=== PATIENT | male | born 1965 | race Caucasian/White ===

== ENCOUNTER 2022-09-28 18:11 | Inpatient (IN) | payer OTHER ==
[2022-09-28] MEDS ORDERED: Sodium Chloride 0.9% 10 ML Syringe FLUSH PRN (20:08)
[2022-09-28] MEDS ORDERED: Multivitamins with Iron/Calcium/Folic Acid/Minerals Tab PO SCH (21:00)
[2022-09-28 21:06] LABS: CORONAVIRUS COVID-19 NAA NEGATIVE (NEGATIVE)
[2022-09-28] MEDS: Lactated Ringers 1,000 ML IV SCH (21:30)
[2022-09-28] MEDS: Tamsulosin 0.4 MG Cap.ER PO SCH (21:30)
[2022-09-29] MEDS: Cholecalciferol (Vitamin D3) 25 MCG Tab PO SCH (08:56)
[2022-09-29] MEDS: Vitamin B Complex Tab PO SCH (08:57)
[2022-09-29] MEDS: predniSONE 20 MG Tab PO SCH (08:57)
[2022-09-29] MEDS: Allopurinol 100 MG Tab PO SCH (08:57)
[2022-09-29] MEDS: Cyanocobalamin (Vitamin B12) 1,000 MCG Tab PO SCH (08:57)
[2022-09-29] MEDS: Multivitamins with Iron Tab.Chew PO SCH ×2 (08:57→20:49)
[2022-09-29] MEDS ORDERED: predniSONE 5 MG Tab PO SCH (09:00)
[2022-09-29] MEDS ORDERED: Potassium Chloride 20 MEQ Tab.ER PO ONE (09:00)
[2022-09-29] MEDS: Acetaminophen 325 MG Tab PO PRN (09:53)
[2022-09-29] MEDS: Sulfamethoxazole/Trimethoprim 800-160 MG Tab PO SCH ×2 (10:42→20:50)
[2022-09-29] MEDS: Lactated Ringers 1,000 ML IV SCH (11:59)
[2022-09-29] MEDS: Tamsulosin 0.4 MG Cap.ER PO SCH (20:49)
[2022-09-29] MEDS: Hypromellose 0.3% Ophth Soln 15 ML Bottle EYEBOTH PRN (21:03)
[2022-09-29] MEDS: Latanoprost 0.005% Ophth Soln 2.5 ML Bottle EYEBOTH SCH (21:03)
[2022-09-30] MEDS: Lactated Ringers 1,000 ML IV SCH (05:42)
[2022-09-30 06:08] LABS: ESTIMATED GFR 88 mL/min (>60)
[2022-09-30] MEDS: predniSONE 20 MG Tab PO SCH (07:25)
[2022-09-30] MEDS: Multivitamins with Iron Tab.Chew PO SCH ×2 (08:29→20:58)
[2022-09-30] MEDS: Cholecalciferol (Vitamin D3) 25 MCG Tab PO SCH (08:30)
[2022-09-30] MEDS: Vitamin B Complex Tab PO SCH (08:30)
[2022-09-30] MEDS: Cyanocobalamin (Vitamin B12) 1,000 MCG Tab PO SCH (08:30)
[2022-09-30] MEDS: Sulfamethoxazole/Trimethoprim 800-160 MG Tab PO SCH ×2 (08:30→20:59)
[2022-09-30] MEDS: Allopurinol 100 MG Tab PO SCH (08:31)
[2022-09-30] MEDS: Hypromellose 0.3% Ophth Soln 15 ML Bottle EYEBOTH PRN (20:59)
[2022-09-30] MEDS: Latanoprost 0.005% Ophth Soln 2.5 ML Bottle EYEBOTH SCH (20:59)
[2022-09-30] MEDS: Tamsulosin 0.4 MG Cap.ER PO SCH (20:59)
[2022-09-30] MEDS: Acetaminophen 325 MG Tab PO PRN (23:43)
[2022-10-01 05:03] LABS: ESTIMATED GFR 88 mL/min (>60)
[2022-10-01] MEDS: Lactated Ringers 1,000 ML IV SCH (05:44)
[2022-10-01] MEDS ORDERED: fentaNYL 250 MCG/5 ML SDV ONE ×2 (07:14→13:31)
[2022-10-01] MEDS ORDERED: Glycopyrrolate 0.2 MG/ML 5 ML MDV ONE (07:15)
[2022-10-01] MEDS ORDERED: Ondansetron 4 MG/2 ML SDV ONE (07:15)
[2022-10-01] MEDS ORDERED: Propofol 200 MG/20 ML SDV ONE (07:15)
[2022-10-01] MEDS ORDERED: Dexamethasone 4 MG/ML SDV ONE (07:15)
[2022-10-01] MEDS ORDERED: Succinylcholine 200 MG/10 ML MDV ONE (07:15)
[2022-10-01] MEDS ORDERED: Rocuronium 50 MG/5 ML Vial ONE (07:15)
[2022-10-01] MEDS ORDERED: Neostigmine Methylsulfate 1 MG/ML 5 ML Syringe ONE (07:15)
[2022-10-01] MEDS ORDERED: Meropenem 500 MG SDV ONE (08:01)
[2022-10-01] MEDS ORDERED: Lidocaine 1% with EPINEPHrine 1:100,000 50 ML MDV ONE (08:01)
[2022-10-01] MEDS ORDERED: Bupivacaine 0.5% 50 ML MDV ONE (08:01)
[2022-10-01] MEDS ORDERED: Indocyanine Green 25 MG SDV IV ONE (08:30)
[2022-10-01] MEDS: Cyanocobalamin (Vitamin B12) 1,000 MCG Tab PO SCH (08:57)
[2022-10-01] MEDS: Cholecalciferol (Vitamin D3) 25 MCG Tab PO SCH (08:57)
[2022-10-01] MEDS: Sulfamethoxazole/Trimethoprim 800-160 MG Tab PO SCH (08:57)
[2022-10-01] MEDS: Multivitamins with Iron Tab.Chew PO SCH (08:57)
[2022-10-01] MEDS: Vitamin B Complex Tab PO SCH (08:57)
[2022-10-01] MEDS: Allopurinol 100 MG Tab PO SCH (08:58)
[2022-10-01] MEDS ORDERED: Ketamine 500 MG/5 ML MDV IV SCH (09:45)
[2022-10-01] MEDS ORDERED: Meropenem 500 MG in Sodium Chloride 0.9% 50 ML IV ONE (09:45)
[2022-10-01] MEDS ORDERED: Ketamine 23 MG in Sodium Chloride 0.9% 19.77 ML IV SCH (09:45)
[2022-10-01] MEDS ORDERED: Lactated Ringers 1,000 ML ONE (13:17)
[2022-10-01] MEDS ORDERED: Labetalol 20 MG/4 ML Syringe ONE (13:47)
[2022-10-01] MEDS ORDERED: Acetaminophen 1,000 MG in Premix Bag 1 BAG IV ONE (14:30)
[2022-10-01] MEDS: HYDROmorphone 2 MG Tab PO PRN ×3 (15:49→23:46)
[2022-10-01] MEDS ORDERED: Pantoprazole 40 MG Vial IVPUSH SCH (16:00)
[2022-10-01] MEDS ORDERED: Ondansetron 4 MG/2 ML SDV IVPUSH PRN (16:00)
[2022-10-01] MEDS ORDERED: HYDROmorphone 1 MG/ML Syringe IV PRN (16:00)
[2022-10-01] MEDS ORDERED: HYDROmorphone 0.5 MG/0.5 ML Syringe IVPUSH PRN (16:00)
[2022-10-01] MEDS: Meropenem 500 MG in Sodium Chloride 0.9% 50 ML IV SCH ×2 (18:26→23:07)
[2022-10-01] MEDS: Dextrose 5%-Lactated Ringers 1,000 ML IV SCH (18:27)
[2022-10-01] MEDS ORDERED: Acetaminophen 325 MG Tab PO PRN (20:30)
[2022-10-01] MEDS: Tamsulosin 0.4 MG Cap.ER PO SCH (21:41)
[2022-10-01] MEDS: Acetaminophen 325 MG Tab PO SCH (21:41)
[2022-10-01] MEDS: Latanoprost 0.005% Ophth Soln 2.5 ML Bottle EYEBOTH SCH (21:41)
[2022-10-02] MEDS: HYDROmorphone 2 MG Tab PO PRN ×3 (03:32→13:30)
[2022-10-02] MEDS: Acetaminophen 325 MG Tab PO SCH ×2 (03:32→07:59)
[2022-10-02] MEDS: Meropenem 500 MG in Sodium Chloride 0.9% 50 ML IV SCH ×2 (05:02→11:34)
[2022-10-02] MEDS: Dextrose 5%-Lactated Ringers 1,000 ML IV SCH (05:03)
[2022-10-02 05:09] LABS: ESTIMATED GFR 88 mL/min (>60)
[2022-10-02] MEDS: Allopurinol 100 MG Tab PO SCH (07:59)
[2022-10-02 11:16] VITALS: BP 127/75; PULSE 67
== END 2022-10-02 13:50 | disposition home or self-care (01) | DRG 417 ==
LOC: JP.MS 18:11
PROVIDERS: ADMIT Hospitalist; ATTEND Surgery
PROC: 0FT44ZZ Resection of Gallbladder, Percutaneous Endoscopic Approach (ICD-10-PCS; principal; 2022-10-01)
PROC: 0WQF4ZZ Repair Abdominal Wall, Percutaneous Endoscopic Approach (ICD-10-PCS; 2022-10-01)
DX: K80.10 Calculus of gallbladder with chronic cholecystitis without obstruction (principal); K85.10 Biliary acute pancreatitis without necrosis or infection; K42.9 Umbilical hernia without obstruction or gangrene; E66.9 Obesity, unspecified; F17.210 Nicotine dependence, cigarettes, uncomplicated; Z20.822 Contact with and (suspected) exposure to COVID-19; H40.9 Unspecified glaucoma; Z68.32 Body mass index [BMI] 32.0-32.9, adult; Z98.84 Bariatric surgery status; Z88.0 Allergy status to penicillin; Z79.899 Other long term (current) drug therapy; Z85.71 Personal history of Hodgkin lymphoma; Z98.42 Cataract extraction status, left eye; Z98.41 Cataract extraction status, right eye
CPT/HCPCS: 0241U; 36415; 80048; 80053; 82150; 82306; 82525; 82607; 82728; 82746; 83690; 83735; 83880; 84100; 84255; 84590; 84630; 85025; 88304; 99253; A9270-GY; C9113; J0131; J0171; J0330; J1100; J2020; J2185; J2405; J2704; J2710; J2795; J3010; J3490; J7120; J7121; J7512